=== PATIENT | male | born 1980 | race Caucasian/White ===

== ENCOUNTER 2016-12-06 06:10 | Day surgery (SDC) ==
[2016-12-06] MEDS ORDERED: PEPCID ONE (06:37)
[2016-12-06] MEDS ORDERED: LR 1,000 ML ONE ×2 (06:37→16:07)
[2016-12-06] MEDS ORDERED: REGLAN ONE (06:37)
[2016-12-06] MEDS ORDERED: KEFZOL 2 GM/D5W 50 ML ONE (06:38)
[2016-12-06] MEDS ORDERED: MARCAINE 0.5% ONE (07:03)
[2016-12-06 09:42] VITALS: BP 134/90
--- NOTE | 2016-12-06 10:07 | OPERATIVE NOTE ---
PROCEDURE DATE: 12/06/2016 PREOPERATIVE DIAGNOSES: 1. Right 4th toe cyst. 2. Left heel plantar wart. POSTOPERATIVE DIAGNOSES: 1. Right 4th toe cyst. 2. Left heel plantar wart. PROCEDURES PERFORMED: 1. Right 4th toe cyst excision. 2. Left heel plantar wart soft tissue excision. SURGEON: Wilber Cee MD [employer] OFFICER: JOSEFINA Vu ANESTHESIA: General with LMA. TOURNIQUET TIME: On the right was about 16 minutes. No tourniquet on the left. SPECIMENS: The right 4th toe cyst was sent to Pathology. DISPOSITION: To PACU, hemodynamically stable. INDICATIONS FOR PROCEDURE: Mr. Archer is a 36-year-old male who I saw in my clinic for evaluation of this right 4th toe cyst. It has been there for a long time. He had had it drained twice before, and it just kept coming back, and so we discussed surgical excision of it. He said he also had a plantar wart on the left heel. I discussed with him that I could excise that as well at the same time, so he wanted to proceed with surgery. DESCRIPTION OF PROCEDURE: Mr. Archer was identified in the preoperative holding area. The right 4th toe was marked as the correct surgical site, and the left heel was marked as the correct surgical site. He was then wheeled to the operating room and placed supine on the operating room table. All bony prominences were well padded. He was induced under general anesthesia. LMA was placed. No tourniquet was placed to either leg. Bilateral lower extremities were prepped with ChloraPrep and draped in a normal sterile fashion. Surgical pause was performed. We identified the correct patient, correct side, and the correct procedure. Preoperative antibiotics were given. We started on the right side. Esmarch was used to exsanguinate the right foot, and the Esmarch was used as the tourniquet at the level of the ankle, and it was up for 16 minutes. I started with excising that ballooned area of skin on the dorsal aspect of the 4th toe just proximal to the nail. I sent off that tissue to Pathology. Underneath the cyst area, I then follow the tract down to bone and excised out some of that tissue right along the tract, and I sent it to Pathology as well. Once I got down to bone, then I bovied that area with electrocautery briefly, being sure not to disrupt the germinal matrix. I was just proximal to the germinal matrix. Once I had bovied that area, we then curetted it, so that hopefully this cyst will not come back. I then irrigated everything copiously with normal saline and then sewed the skin back to the nail with nylon suture. A toe dressing was then placed, and the tourniquet was let down. The patient had good capillary refill return to all the toes. I then turned my attention to the left side and that heel soft tissue wart. I excised that using forceps and a scalpel, and I got out the whole wart area. Inside that wart actually was what looked like a hair follicle, but I excised that whole area out without complication. No tourniquet was used on that side. We then placed the right foot into a hard-soled shoe. The patient was then wheeled from general anesthesia, moved to his own bed, and taken to the PACU in stable condition. Postoperatively, the patient will be weight bear as tolerated to the right lower extremity in a postoperative shoe and will be weight bear as tolerated to the left lower extremity in a regular shoe, and I will see him in 1 week in the clinic.
[2016-12-06] MEDS ORDERED: DIPRIVAN 1% ONE (14:49)
[2016-12-06] MEDS ORDERED: FENTANYL ONE (14:50)
[2016-12-06] MEDS ORDERED: XYLOCAINE-MPF 2% ONE (16:07)
== END 2016-12-06 09:45 | disposition home or self-care (01) ==
LOC: OPS 06:10
PROVIDERS: ATTEND Orthopaedic Surgery
DX: L72.0 Epidermal cyst (principal); B07.0 Plantar wart
CPT/HCPCS: 88304; J0690; J3010; J7120; S0020